=== PATIENT | female | born 1950 | race Caucasian/White ===

== ENCOUNTER → 2023-01-05 13:46 | Outpatient (REF) | payer MEDICARE, SELFPAY ==
--- NOTE | 2023-01-05 13:52 | CA_ITS ---
Transthoracic Echocardiogram Patient (Last, First, Middle): Puja Chaudhari, Gender: Female Date of : 1950 Age: 72 Procedure Date: 01/05/2023 Procedure Type: Transthoracic Echocardiogram Location: [facility] Height: 165.1 cm Weight: 65.77 kg BSA: 1.73 m2 Heart Rate: bpm BP: 124 / 72 mmHg New Product Trainer: TO Referring MD: Adi Sotelo MD Symptoms: HYPERTENSIVE HEART DISEASE WITHOUT HEART FAILURE Study Quality: Fair Conclusions: - 1. Low normal LV ejection fraction 50-55% with grade 1 diastolic dysfunction 2. Mild aortic regurgitation 3. Normal RV systolic pressure with mildly elevated right atrial pressures 4. No pericardial effusion Findings Left Ventricle Normal left ventricular cavity size. There is normal left ventricular wall thickness. The left ventricular systolic function is low normal. The visually estimated ejection fraction is between 50-55%. Spectral Doppler is indicative of an impaired relaxation filling pattern. E/E prime ratio is <8, consistent with normal filling pressures. Evidence suggests grade I (mild) diastolic dysfunction. Right Ventricle Normal right ventricular cavity size and systolic function. Atria The left atrium is normal in size. The right atrium is normal in size. Aortic Valve The aortic valve structure and function is likely normal. There is no aortic valve stenosis. There is mild aortic valve regurgitation. Mitral Valve Likely normal mitral valve structure and function. There is trace mitral valve regurgitation. There is no mitral valve stenosis. Pulmonic Valve The pulmonic valve was not well visualized. Tricuspid Valve Likely normal tricuspid valve structure and function. There is mild tricuspid valve regurgitation. The right ventricular systolic pressure is normal. Mildly elevated right atrial pressure. There is no evidence of pulmonary hypertension. Great Vessels All visible segments of the aorta are normal in size. The pulmonary artery was not well visualized. Venous The inferior vena cava is normal in size and collapses less than 50% with inspiration. Pericardium/Pleural There is no evidence of pericardial effusion. Prior Study Comparison Changes noted compared to prior study dated: 11/04/2021. Low normal LV systolic function noted. Ascending aorta is measured to be of normal size on this study could be due to off axis views Measurements 2D Linear Measurements IVSd: 1.10 0.6-0.9/0.6-1.0 cm LVIDd: 4.26 3.9-5.3/4.2-5.9 cm LVIDd Index: 2.46 2.4-3.2/2.2-3.1 cm/m2 LVIDs: 3.08 2.0-3.6 cm LVPWd: 0.71 0.7-1.1 cm LA Diam: 3.00 2.7-3.8/3.0-4.0 cm LAIDs Index: 1.73 1.5-2.3 cm/m2 LV Mass: 152.08 67-162/88-224 g LV Mass Index: 87.91 43-95/49-115 g/m2 LVOT Diam: 2.10 3.0+(-)1.3 cm 2D Systolic Function EF 4C: 52.00 >55% EF 2C: 53.10 >55% EF BiP: 53.20 >55% Mitral Valve MV Pk E: 0.41 MV PK A: 0.64 MV Decel Time: 300.00 E/A: 0.60 E'Lateral: 8.49 E'Medial: 4.79 E/E' Med: 8.60 E/E' Lat: 4.80 PHT: 88.00 MVA PHT: 2.50 Decel Mono: 1.37 Aortic Valve AoV Pk Sean: 1.00 AoV Mn Sean: 0.68 AoV VTI: 0.21 AoV Pk Grad: 4.00 Aov Mn Grad: 2.00 OMAR Cont.VTI: 2.67 LVOT LVOT Pk Sean: 0.78 LVOT Mn Sean: 0.52 LVOT VTI: 0.16 LVOT Pk Grad: 2.00 LVOT Mn Grad: 1.00 LVOT Diam: 2.10 LVOT Area: 3.46 Diastolic Function MV Pk E: 0.41 MV Pk A: 0.64 E/A: 0.60 E'Medial: 4.79 E/E' Med: 8.60 E' Laterial: 8.49 E/E' Lat: 4.80 Right Ventricle TAPSE (mm): 21.40 TVS' Sean: 15.20 Tricuspid Valve TR Pk Sean: 2.39 TR Pk Grad: 23.00 RA Press: 8.00 RVSP: 31.00 Great Vessels Aorta Sinus of Valsalva: 3.30 2.0-3.5 cm Ao Asc: 3.30 2.1-3.4 cm Updated in Other Vendor System with Status of Final Sonny Simon MD electronically signed on 01/06/2023 10:19:26 AM with status of Final
== END ==
LOC: HO.CARD 13:46
PROVIDERS: PCP Family Medicine; Visit Provider Family Medicine
DX: I11.9 Hypertensive heart disease without heart failure (principal)
CPT/HCPCS: 93306